=== PATIENT | male | born 1940 | race Caucasian/White ===

== ENCOUNTER 2019-03-31 13:52 | Emergency (ER) | payer MEDICARE ==
[~2019-03-31] VITALS: Ht 180.3 cm; Wt 99.1 kg
[2019-03-31] MEDS ORDERED: LISI-600 PO (15:44)
[2019-03-31 15:50] VITALS: BP 173/110
== END 2019-03-31 18:59 | disposition home or self-care (01) ==
LOC: ER 13:52
DX: I10 Essential (primary) hypertension (principal); G20 Parkinson's disease
CPT/HCPCS: 93005; 99283

== ENCOUNTER 2020-07-14 15:04 | Outpatient (CLI) | payer BC | END 2020-07-14 23:59 | disposition home or self-care (01) | LOC: RAD 15:04 | PROVIDERS: ATTEND Psychiatry & Neurology Neurology | DX: R13.12 Dysphagia, oropharyngeal phase (principal); R47.1 Dysarthria and anarthria; R49.0 Dysphonia; G20 Parkinson's disease | CPT/HCPCS: 74230 ==